=== PATIENT | female | born 1965 | race Caucasian/White ===

== ENCOUNTER 2017-01-27 08:50 | Outpatient (CLI) | payer BC, OTHER | END 2017-01-27 08:51 | disposition home or self-care (01) | DX: Z12.31 Encounter for screening mammogram for malignant neoplasm of breast (principal); N95.1 Menopausal and female climacteric states; E55.9 Vitamin D deficiency, unspecified ==

== ENCOUNTER 2017-10-13 07:31 | Outpatient (CLI) | payer BC, OTHER ==
[2017-10-13 07:59] LABS: BASOPHILS # (AUTO) 0.1 10^3/uL (0.0-0.1); BASOPHILS % (AUTO) 1.3 %; EOSINOPHILS # (AUTO) 0.4 10^3/uL (0.0-0.7); EOSINOPHILS % (AUTO) 7.3 %; HGB - HEMOGLOBIN 13.2 g/dL (12.0-16.0); LYMPHOCYTES # (AUTO) 1.5 10^3/uL (1.5-3.5); LYMPHOCYTES % (AUTO) 30.9 %; MEAN CORPUSCULAR HEMOGLOBIN 30.6 pg (27.0-31.0); MEAN CORPUSCULAR HGB CONC 34.1 g/dL (32.0-36.0); MEAN CORPUSCULAR VOLUME 89.7 fL (81.0-99.0); MEAN PLATELET VOLUME 7.2 fL (7.9-10.8); MONOCYTES # (AUTO) 0.3 10^3/uL (0.0-1.0); NEUTROPHILS # (AUTO) 2.6 10^3/uL (1.5-6.6); NEUTROPHILS % (AUTO) 54.5 %; PLT - PLATELET COUNT 266 10^3/uL (130-450); RED BLOOD COUNT 4.33 10^6/uL (4.20-5.40); RED CELL DISTRIBUTION WIDTH 13.4 % (12.0-15.0); WHITE BLOOD COUNT 4.8 x10^3/uL (4.8-10.8)
[2017-10-13 08:41] LABS: % IRON SATURATION 32 % (20-50); ALBUMIN 4.3 g/dL (3.2-5.5); ALBUMIN/GLOBULIN RATIO 1.5 (1.0-2.2); ALKALINE PHOSPHATASE 78 IU/L (42-121); ALT ALANINE AMINOTRANSFERASE 13 IU/L (10-60); AST ASPARTATE AMINOTRANSFERASE 16 IU/L (10-42); BILIRUBIN,TOTAL 0.8 mg/dL (0.2-1.0); BUN - BLOOD UREA NITROGEN 17 mg/dL (6-20); CALCIUM 9.3 mg/dL (8.5-10.3); CARBON DIOXIDE - CO2 27 mmol/L (21-32); CHLORIDE 103 mmol/L (101-111); CHOL/HDL RATIO 3.1 (<4.4); CHOLESTEROL 211 mg/dL; CREATININE 0.6 mg/dL (0.4-1.0); GFR - MDRD 105 (>89); GLUCOSE 104 mg/dL (70-100); HDL CHOLESTEROL 69 mg/dL; IRON 96 ug/dL (28-170); LDL CHOLESTEROL,CALCULATED 128 mg/dL; LDL/HDL RATIO 1.9 (<4.4); MAGNESIUM 1.9 mg/dL (1.7-2.8); SODIUM 139 mmol/L (135-145); TOTAL IRON BINDING CAPACITY 302 ug/dL (250-450); TOTAL PROTEIN 7.1 g/dL (6.7-8.2); TRANSFERRIN 216 mg/dL (192-382); VLDL CHOLESTEROL 14 mg/dL
[2017-10-13 08:52] LABS: THYROID STIMULATING HORMONE 0.81 uIU/mL (0.34-5.60)
[2017-10-13 09:00] LABS: FERRITIN 92.3 ng/mL (11.0-306.8)
[2017-10-13 09:03] LABS: FOLATE 8.17 ng/mL (5.90 - >24.8)
== END 2017-10-13 07:32 | disposition home or self-care (01) ==
LOC: LAB 07:31
PROVIDERS: ATTEND Physician Assistant Medical
DX: Z00.00 Encounter for general adult medical examination without abnormal findings (principal); E55.9 Vitamin D deficiency, unspecified; G25.81 Restless legs syndrome; D64.9 Anemia, unspecified
CPT/HCPCS: 36415; 80053; 80061; 82306; 82607; 82728; 82746; 83540; 83721; 83735; 84443; 84466; 85025

== ENCOUNTER 2018-10-02 12:40 | Outpatient (CLI) | payer BC, OTHER ==
[2018-10-02 17:40] LABS: BASOPHILS # (AUTO) 0.1 10^3/uL (0.0-0.1); EOSINOPHILS # (AUTO) 0.7 10^3/uL (0.0-0.7); EOSINOPHILS % (AUTO) 10.3 %; HGB - HEMOGLOBIN 13.5 g/dL (12.0-16.0); LYMPHOCYTES # (AUTO) 1.9 10^3/uL (1.5-3.5); LYMPHOCYTES % (AUTO) 27.1 %; MEAN CORPUSCULAR HEMOGLOBIN 30.5 pg (27.0-31.0); MEAN CORPUSCULAR VOLUME 92.6 fL (81.0-99.0); MEAN PLATELET VOLUME 7.4 fL (7.9-10.8); MONOCYTES # (AUTO) 0.4 10^3/uL (0.0-1.0); MONOCYTES % (AUTO) 5.4 %; NEUTROPHILS # (AUTO) 3.9 10^3/uL (1.5-6.6); NEUTROPHILS % (AUTO) 56.2 %; PLT - PLATELET COUNT 358 10^3/uL (130-450); RED BLOOD COUNT 4.43 10^6/uL (4.20-5.40); RED CELL DISTRIBUTION WIDTH 13.2 % (12.0-15.0); WHITE BLOOD COUNT 6.9 x10^3/uL (4.8-10.8)
[2018-10-02 18:25] LABS: URIC ACID 4.7 mg/dL (2.6-7.2)
[2018-10-02 18:28] LABS: CRP - C-REACTIVE PROTEIN < 1.0 mg/dL (0-1.0)
[2018-10-02 19:11] LABS: RHEUMATOID FACTOR NEGATIVE (Negative)
[2018-10-05 15:25] LABS: ANA SCREEN NEGATIVE (NEGATIVE)
== END 2018-10-02 12:41 | disposition home or self-care (01) ==
LOC: LAB.F 12:40
PROVIDERS: ATTEND Physician Assistant Medical
DX: Z86.39 Personal history of other endocrine, nutritional and metabolic disease (principal); M13.0 Polyarthritis, unspecified
CPT/HCPCS: 36415; 84443; 84550; 85025; 85651; 86038; 86140; 86200; 86430

== ENCOUNTER 2019-02-22 20:49 | Emergency (ER) | payer BC, OTHER ==
[2019-02-22] MEDS ORDERED: IPRATROPIUM/ALBUTEROL 3 ML NEB INH STA (21:05)
--- NOTE | 2019-02-22 21:19 | ED Physician Documentation ---
PD HPI DYSPNEA - Stated complaint Stated Complaint: SOA/ASHTMA - Chief complaint Chief Complaint: Resp - History obtained from History obtained from: Patient, Family - History of Present Illness Timing - onset: How many days ago (4) Timing - onset during: Rest Timing - duration: Days (4) Timing - details: Gradual onset, Still present in ED Inciting event(s): Allergic rxn/anaphylaxis Improved by: Inhaler/neb, Steroids Worsened by: Exertion, Allergens Associated symptoms: Cough, Wheezing. 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 She does have a cough she does not know the color of her sputum she has not had fever. She does not have ear pain or sinus pain. She has previously used prednisone yearly for exacerbations of her asthma and this spring she saw a athletic field custodian and was placed on an extended course of prednisone which she has been off of for about 1 month. She has tried her inhaler and this was working and today it is not helping. She tried to get a nebulizer machine and was unable. Review of Systems Constitutional: denies: Fever, Chills, Myalgias, Fatigue Eyes: denies: Decreased vision Ears: denies: Ear pain Nose: denies: Rhinorrhea / runny nose, Congestion Throat: denies: Sore throat Cardiac: denies: Chest pain / pressure, Palpitations, Pedal edema, Calf pain Respiratory: reports: Dyspnea, Cough, Wheezing GI: denies: Abdominal Pain, Nausea, Vomiting : denies: Dysuria PD PAST MEDICAL HISTORY - Past Medical History Past Medical History: No Cardiovascular: None Respiratory: Asthma Neuro: None Endocrine/Autoimmune: None GI: None : None HEENT: Chronic sinusitis Psych: None Musculoskeletal: Rheumatoid arthritis Derm: None - Past Surgical History Past Surgical History: Yes /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: No Smoking Status: Never smoker Does the pt drink ETOH?: Yes Does the pt have substance abuse?: No - Immunizations Immunizations are current?: Yes - POLST Patient has POLST: No PD ED PE NORMAL - Vitals Vital signs reviewed: Yes (hypertensive ) - General General: Alert and oriented X 3, Well developed/nourished, Other (tachypneic at rest with shortened sentences) - HEENT HEENT: Atraumatic, PERRL, EOMI, Ears normal, Moist mucous membranes, Pharynx benign - Neck Neck: Supple, no meningeal sign, No bony TTP - Cardiac Cardiac: RRR, No murmur - Respiratory Respiratory: Other (tachypneic at rest with musical wheezes throughout ) - Abdomen Abdomen: Soft, Non tender - Back Back: No CVA TTP, No spinal TTP - Derm Derm: Normal color, Warm and dry, No rash - Extremities Extremities: No deformity, No edema - Neuro Neuro: Alert and oriented X 3, grocery clerk 2-12 intact, No motor deficit, No sensory deficit, Normal speech Eye Opening: Spontaneous Motor: Obeys Commands Verbal: Oriented GCS Score: 15 - Psych Psych: Normal mood, Normal affect Results - Vitals Vitals: Vital Signs - 24 hr 02/22/19 02/22/19 02/22/19 20:52 21:14 21:54 Temperature 36.5 C Heart Rate 90 84 82 Respiratory 18 18 18 Rate Blood Pressure 164/88 H O2 Saturation 97 Oxygen O2 Source Room air PD MEDICAL DECISION MAKING - ED course Complexity details: reviewed old records, considered differential, d/w patient, d/w family ED course: 54 y/o female with a history of seasonal allergic asthma has an acute exacerbation. She has improvement with a DuoNeb treatment and further improvement with an albuterol treatment she is administered 10 mg of dexamethasone and we will place her on a course of prednisone. Departure - Departure Disposition: 01 Home, Self Care Clinical Impression: Asthma exacerbation Qualifiers: Asthma severity: mild Asthma persistence: intermittent Qualified Code(s): J45.21 - Mild intermittent asthma with (acute) exacerbation Condition: Stable Instructions: ED Reactive Airway Disease Follow-Up: Brittni Weir PA-C [Primary Care Provider] - Prescriptions: Albuterol 2.5 mg INH Q4H PRN #30 neb PRN Reason: Wheezing predniSONE [Deltasone] 10 mg PO ONCE #26 tablet Comments: Today in the Emergency Department your blood pressure was elevated. This can happen from the stress of the visit itself, from a current illness or circumstance or from uncontrolled hypertension. If you take blood pressure medications take your usual mediations, have your blood pressure re-checked in an appropriate setting and follow up any elevation with your primary care doctor. Forms: Activity restrictions
[2019-02-22] MEDS ORDERED: ALBUTEROL NEB 2.5 MG/3 ML INH STA (21:45)
[2019-02-22] MEDS ORDERED: DEXAMETHASONE 10 MG/ML VIAL PO STA (21:45)
[2019-02-22] MEDS ORDERED: CHERRY SYRUP 10 ML UDC PO ONE (21:45)
[2019-02-22 22:10] VITALS: BP 150/97
== END 2019-02-22 22:12 | disposition home or self-care (01) ==
LOC: ED 20:49
DX: J45.21 Mild intermittent asthma with (acute) exacerbation (principal); R03.0 Elevated blood-pressure reading, without diagnosis of hypertension
CPT/HCPCS: 94640; 94664; 99283; 99284; A9270

== ENCOUNTER 2019-03-11 09:34 | Outpatient (CLI) | payer BC, OTHER ==
--- NOTE | 2019-03-11 10:45 | XRAY Report ---
Reason: SHORTNESS OF BREATH,ASTHMA WITH ACUTE EXACERBATION Procedure Date: 03/11/2019 Accession Number: [id number] / [id number] Procedure: XR - Chest 2 View X-Ray CPT Code: 94841 FULL RESULT: EXAM: CHEST RADIOGRAPHY EXAM DATE: 03/11/2019 09:49 AM. CLINICAL HISTORY: Shortness of breath, asthma with acute exacerbation. COMPARISON: XR CHEST PA AND LAT 09/26/2010. TECHNIQUE: 2 views. FINDINGS: Lungs/Pleura: Mild paucity of upper lung markings with high lung volumes without significant flattening of diaphragms. Bilateral airway thickening can be seen in the setting of bronchiolitis or reactive airways disease. No focal lung parenchymal consolidation identified to suggest superimposed pneumonia. No pleural effusion or pneumothorax. Mediastinum: Heart and mediastinal contours are unremarkable. Other: None. IMPRESSION: Airway thickening and hyperinflated lungs is most consistent with reactive airways disease. [facility]
== END 2019-03-11 09:35 | disposition home or self-care (01) ==
LOC: DI 09:34
PROVIDERS: ATTEND Physician Assistant Medical
DX: J45.901 Unspecified asthma with (acute) exacerbation (principal)
CPT/HCPCS: 71046

== ENCOUNTER 2023-07-03 14:48 | Outpatient (CLI) | payer OTHER ==
[2023-07-03] MEDS ORDERED: ALBUTEROL 1 PUFF INH STA (15:51)
== END 2023-07-03 14:49 | disposition home or self-care (01) ==
LOC: RT 14:48
PROVIDERS: ATTEND Registered Nurse
DX: J45.909 Unspecified asthma, uncomplicated (principal)
CPT/HCPCS: 94060; 94729